=== PATIENT | female | born 2000 | race African-American/Black ===

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

== ENCOUNTER 2018-09-20 21:32 | Emergency (ER) | payer MEDICAID, OTHER ==
[2018-09-20 21:46] VITALS: BP 127/63
[2018-09-20] MEDS ORDERED: LIDOCAINE 2% URO-JET 5 ML KIT MM ONE (21:51)
--- NOTE | 2018-09-20 22:02 | ER Document Report ---
ED Medical Screen (RME) - General Chief Complaint: Lower Abdominal Pain Stated Complaint: ABDOMINAL AND BACK PAIN Time Seen by Provider: 09/20/18 22:00 Notes: Patient is a 18-year-old female presents the emergency department complaining of left lower pelvic pain for the last 3 days. Patient denies any nausea, vomiting, diarrhea, fever. Patient is admitting to some thick vaginal discharge and dysuria. Past medical history: None Medications: None Allergies: None Physical exam: Generalized left lower pelvic pain more so upon palpation, no right or suprapubic pelvic pain. No CVA tenderness bilaterally I have greeted and performed a rapid initial assessment of this patient. A comprehensive ED assessment and evaluation of the patient, analysis of test results and completion of the medical decision making process will be conducted by additional ED providers. TRAVEL OUTSIDE OF THE [place] IN LAST 30 DAYS: No - Related Data Allergies/Adverse Reactions: No Known Allergies Allergy (Verified 02/20/17 13:16) Past Medical History Renal/ Medical History: Denies: Hx Peritoneal Dialysis - Immunizations Hx Diphtheria, Pertussis, Tetanus Vaccination: Yes - 02/20/2017 Physical Exam - Vital signs Vitals: Temp Pulse Resp BP Pulse Ox 98.6 F 90 16 127/63 H 99 09/20/18 21:42 09/20/18 21:42 09/20/18 21:42 09/20/18 21:42 09/20/18 21:42 Course - Vital Signs Vital signs: Temp Pulse Resp BP Pulse Ox 98.6 F 90 16 127/63 H 99 09/20/18 21:42 09/20/18 21:42 09/20/18 21:42 09/20/18 21:42 09/20/18 21:42
[2018-09-20 23:26] LABS: ABSOLUTE EOSINOPHILS # (AUTO) 0.2 10^3/uL (0.0-0.6); ABSOLUTE LYMPHOCYTES (AUTO) 3.3 10^3/uL (0.5-4.7); ABSOLUTE MONOCYTES (AUTO) 0.5 10^3/uL (0.1-1.4); ABSOLUTE NEUT (AUTO) 3.3 10^3/uL (1.7-8.2); BASOPHILS % (AUTO) 0.5 % (0-2); EOSINOPHILS % (AUTO) 2.2 % (0-6); HEMATOCRIT 38.3 % (36.0-47.0); HEMOGLOBIN 12.8 g/dL (12.0-15.5); LYMPHOCYTES % (AUTO) 45.6 % (13-45); MEAN CORPUSCULAR HEMOGLOBIN 24.7 pg (27.0-33.4); MEAN CORPUSCULAR HGB CONC 33.5 g/dL (32.0-36.0); MEAN CORPUSCULAR VOLUME 74 fl (80-97); MONOCYTES % (AUTO) 6.9 % (3-13); PLATELET COUNT 320 10^3/uL (150-450); RED CELL DISTRIBUTION WIDTH 14.1 % (11.5-14.0); SEGMENTED NEUTROPHILS % (AUTO) 44.8 % (42-78); TOTAL CELLS COUNTED % (AUTO) 100 %; WHITE BLOOD COUNT 7.3 10^3/uL (4.0-10.5)
[2018-09-20 23:43] LABS: ALANINE AMINOTRANSFERASE 14 U/L (9-52); ALBUMIN 4.5 g/dL (3.5-5.0); ALKALINE PHOSPHATASE 101 U/L (38-126); ANION GAP 11 (5-19); ASPARTATE AMINO TRANSFERASE 15 U/L (14-36); BILIRUBIN,DIRECT 0.1 mg/dL (0.0-0.4); BILIRUBIN,TOTAL 0.2 mg/dL (0.2-1.3); BLOOD UREA NITROGEN 9 mg/dL (7-20); CALCIUM 9.5 mg/dL (8.4-10.2); CARBON DIOXIDE 24 mmol/L (22-30); CHLORIDE 105 mmol/L (98-107); GLUCOSE 117 mg/dL (75-110); POTASSIUM 4.3 mmol/L (3.6-5.0); SODIUM 139.9 mmol/L (137-145); TOTAL PROTEIN 7.4 g/dL (6.3-8.2)
[2018-09-21] MEDS ORDERED: IBUPROFEN 600 MG TABLET PO ONE (00:58)
--- NOTE | 2018-09-21 00:58 | ER Document Report ---
ED General - General Chief Complaint: Lower Abdominal Pain Stated Complaint: ABDOMINAL AND BACK PAIN Time Seen by Provider: 09/20/18 22:00 TRAVEL OUTSIDE OF THE [place] IN LAST 30 DAYS: No - HPI Notes: Patient is a 18-year-old female that presents to the emergency department for chief complaint of left lower quadrant pain. Patient reports left lower quadrant and pelvic pain for the last 3-4 days. She states it started intermittent and has now become constant. The pain radiates up into her left flank. She denies any fever, chills, nausea, vomiting, diarrhea and dysuria. She states she is having normal bowel movements. Patient denies concern for and states she has the Nexplanon implant in. She denies any vaginal discharge that is changed from her baseline. She denies any concern for STD. She denies aggravating or relieving factors to her pain. Past Medical History: Migraines Past Surgical History: Negative Social History: Denies drugs alcohol and tobacco Family History: Reviewed and noncontributory for presenting illness Allergies: Reviewed, see documented allergy list. REVIEW OF SYSTEMS: CONSTITUTIONAL : No fever No chills No diaphoresis No recent illness EENT: No vision changes No congestion No sore throat CARDIOVASCULAR: No chest pain No palpitations RESPIRATORY: No shortness of breath No cough No difficulty breathing GASTROINTESTINAL: abdominal pain No nausea No vomiting No diarrhea GENITOURINARY: No dysuria No hematuria No difficulty urinating MUSCULOSKELETAL: No back pain No leg pain No arm pain SKIN: No rashes No lesions LYMPHATIC: No swollen, enlarged glands. NEUROLOGICAL: No lightheadedness No headache No weakness No paresthesias PSYCHIATRIC: No anxiety No depression PHYSICAL EXAMINATION: Vital signs reviewed, nursing noted reviewed. GENERAL: Well-appearing, well-nourished and in no acute distress. HEAD: Atraumatic, normocephalic. EYES: Eyes appear normal, extraocular movements intact, sclera anicteric, conjunctiva are normal. ENT: nares patent, oropharynx clear without exudates. Moist mucous membranes. NECK: Normal range of motion, supple without lymphadenopathy LUNGS: Breath sounds clear to auscultation bilaterally and equal. No wheezes rales or rhonchi. HEART: Regular rate and rhythm without murmurs ABDOMEN: Soft, mild left lower quadrant tenderness, normoactive bowel sounds. No rebound, guarding, or rigidity. No masses appreciated. EXTREMITIES: Nontender, good range of motion, no pitting or edema. NEUROLOGICAL: No focal neurological deficits. Moves all extremities spontaneously Motor and sensory grossly intact on exam. PSYCH: Normal mood, normal affect. SKIN: Warm, Dry, normal turgor, no rashes or lesions noted on exposed skin - Related Data Allergies/Adverse Reactions: No Known Allergies Allergy (Verified 02/20/17 13:16) Past Medical History - Social History Smoking Status: Never Smoker Family History: Malignancy. denies: None, Reviewed & Not Pertinent, Arthritis, CAD, COPD, CVA, DM, Hyperlipidemia, Hypertension, Thyroid Disfunction, Other Renal/ Medical History: Denies: Hx Peritoneal Dialysis - Immunizations Hx Diphtheria, Pertussis, Tetanus Vaccination: Yes - 02/20/2017 Physical Exam - Vital signs Vitals: Temp Pulse Resp BP Pulse Ox 98.6 F 90 16 127/63 H 99 09/20/18 21:42 09/20/18 21:42 09/20/18 21:42 09/20/18 21:42 09/20/18 21:42 Course - Re-evaluation Re-evalutation: 09/21/18 02:36 Vitals reviewed. Nursing notes reviewed. Patient's abdominal exam is benign. She has some mild left-sided tenderness with no peritoneal signs. KUB is suggestive of acute constipation. Patient's lab work is unremarkable. She denies any change in vaginal discharge to me and denies any concern for STD, pelvic exam not currently indicated. Urinalysis is negative for infection. Patient will be discharged home on MiraLAX. She will follow with primary care. Laboratory 09/20/18 09/20/18 09/20/18 22:55 22:55 22:55 WBC 7.3 RBC 5.20 Hgb 12.8 Hct 38.3 MCV 74 L MCH 24.7 L MCHC 33.5 RDW 14.1 H Plt Count 320 Seg Neutrophils % 44.8 Lymphocytes % 45.6 H Monocytes % 6.9 Eosinophils % 2.2 Basophils % 0.5 Absolute Neutrophils 3.3 Absolute Lymphocytes 3.3 Absolute Monocytes 0.5 Absolute Eosinophils 0.2 Absolute Basophils 0.0 Sodium 139.9 Potassium 4.3 Chloride 105 Carbon Dioxide 24 Anion Gap 11 BUN 9 Creatinine 0.69 Est GFR ( Amer) > 60 Est GFR (Non-Af Amer) > 60 Glucose 117 H Calcium 9.5 Total Bilirubin 0.2 Direct Bilirubin 0.1 Neonat Total Bilirubin Not Reportable Neonat Direct Bilirubin Not Reportable Neonat Indirect Bili Not Reportable AST 15 ALT 14 Alkaline Phosphatase 101 Total Protein 7.4 Albumin 4.5 Urine Color YELLOW Urine Appearance CLEAR Urine pH 7.0 Ur Specific [place] 1.016 Urine Protein NEGATIVE Urine Glucose (UA) NEGATIVE Urine Ketones NEGATIVE Urine Blood SMALL H Urine Nitrite NEGATIVE Urine Bilirubin NEGATIVE Urine Urobilinogen 2.0 H Ur Leukocyte Esterase NEGATIVE Urine WBC (Auto) 0 Urine RBC (Auto) 1 Squamous Epi Cells Auto 4 Urine Mucus (Auto) RARE Urine Ascorbic Acid NEGATIVE Urine HCG, Qual NEGATIVE KUB X-Ray 09/21/18 00:57 IMPRESSION: Suspect constipation. - Vital Signs Vital signs: Temp Pulse Resp BP Pulse Ox 98.6 F 90 16 127/63 H 99 09/20/18 21:42 09/20/18 21:42 09/20/18 21:42 09/20/18 21:42 09/20/18 21:42 - Laboratory Result Diagrams: 09/20/18 22:55 09/20/18 22:55 Laboratory results interpreted by me: 09/20/18 09/20/18 09/20/18 22:55 22:55 22:55 MCV 74 L MCH 24.7 L RDW 14.1 H Lymphocytes % 45.6 H Glucose 117 H Urine Blood SMALL H Urine Urobilinogen 2.0 H Discharge - Discharge Clinical Impression: Constipation Qualifiers: Constipation type: other constipation type Qualified Code(s): K59.09 - Other constipation Condition: Stable Disposition: HOME, SELF-CARE Instructions: Constipation ([facility]), Family Physicians / Practices Additional Instructions: Please return to the emergency department if you have any worsening, or concern of your symptoms. Please return to the emergency department if you develop chest pain, difficulty breathing, severe abdominal pain, or ongoing vomiting. Please follow-up with your primary care physician in 2-3 days and any other recommended physicians. If prescribed, take all medications as directed. If you have any questions or concerns do not hesitate to return the emergency department for evaluation. Take the MiraLAX twice a day until he started having routine soft bowel movements daily. Then you can begin taking it once a day or once every other day as needed Prescriptions: Polyethylene Glycol 3350 [Miralax Powder 17 gm/Packet] 1 packet PO BID #1 pkg Referrals: [facility] [Provider Group] - Follow up as needed
[2018-09-21 01:25] LABS: APPEARANCE,URINE CLEAR; BILIRUBIN,URINE NEGATIVE (NEGATIVE); COLOR,URINE YELLOW; GLUCOSE, URINE NEGATIVE (NEGATIVE); KETONES,URINE NEGATIVE (NEGATIVE); LEUKOCYTE ESTERASE,URINE NEGATIVE (NEGATIVE); NITRITE,URINE NEGATIVE (NEGATIVE); PROTEIN,URINE NEGATIVE (NEGATIVE); URINE SPECIFIC GRAVITY 1.016
--- NOTE | 2018-09-21 02:29 | RADIOLOGY REPORT (SQ) ---
CLINICAL HISTORY: constipation COMPARISON: None. TECHNIQUE: XR ABDOMEN 1 VIEW (KUB) 09/21/2018 12:57 AM X RAY TECHNICIAN FINDINGS: There is moderate amount of stool throughout colon. There are no abnormal radiopaque foreign bodies or abnormal calcifications. Osseous structures are grossly unremarkable. IMPRESSION: Suspect constipation.
[2018-09-21 02:55] LABS: CHLAM PCR NOT DETECTED (NOT DETECT); GON PCR NOT DETECTED (NOT DETECT)
== END 2018-09-21 02:58 | disposition home or self-care (01) ==
LOC: ER 21:32
DX: K59.00 Constipation, unspecified (principal); R10.32 Left lower quadrant pain; R10.2 Pelvic and perineal pain; Z97.5 Presence of (intrauterine) contraceptive device
CPT/HCPCS: 36415; 74018; 80053; 81001; 81025; 85025; 87491; 87591; 99284

== ENCOUNTER 2020-04-26 16:17 | Outpatient (CLI) | payer MEDICAID ==
--- NOTE | 2020-04-26 17:33 | Non Stress Test Report ---
Non Stress Test Datetime Report Generated by CPN: 04/26/2020 17:33 DEMOGRAPHIC EGA NST: 38.3 INDICATION Indication for Study (NST) Other: Provider Order VITAL SIGNS Temperature - NST: 98.4 Pulse - NST: 100 RESP - NST: 13 NBPSYS NST: 98 NBPDIA NST: 51 MONITORING Monitor Explained: Monitor Explained; Test Explained; Patient Verbalized Understanding Time on Monitor: 04/26/2020 16:30 Time off Monitor: 04/26/2020 17:20 NST Duration: 50 NST INTERVENTIONS NST Interventions: PO Hydration Physician Notified NST: Dr. Armstrong BABY A: [id number] Movement : Present Movement : Present Contraction Frequency : Irregular FHR Baseline : 135 Accelerations : 15X15 Decelerations : None Variability : Moderate 6-25bpm NST Review: Meets Criteria for Reactive NST NST Review and Verified By : Mary Ellen Hensley RN NST Results: Reactive NST REPORT Report Trigger: Send Report
== END 2020-04-26 17:24 | disposition home or self-care (01) ==
LOC: LC 16:17
PROVIDERS: ATTEND Obstetrics & Gynecology Gynecology
DX: Z34.83 Encounter for supervision of other normal pregnancy, third trimester (principal); Z3A.38 38 weeks gestation of pregnancy
CPT/HCPCS: 59025

== ENCOUNTER 2020-05-10 04:50 | Inpatient (IN) | payer MEDICAID ==
[2020-05-04 10:07] LABS: HEMATOCRIT 32.1 % (36.0-47.0); HEMOGLOBIN 10.7 g/dL (12.0-15.5); MEAN CORPUSCULAR HGB CONC 33.2 g/dL (32.0-36.0); MEAN CORPUSCULAR VOLUME 72 fl (80-97); PLATELET COUNT 209 10^3/uL (150-450); RED BLOOD COUNT 4.45 10^6/uL (3.72-5.28)
[2020-05-04 10:30] LABS: APPEARANCE,URINE CLOUDY; BILIRUBIN,URINE NEGATIVE (NEGATIVE); COLOR,URINE YELLOW; GLUCOSE, URINE 50 mg/dL (NEGATIVE); KETONES,URINE NEGATIVE (NEGATIVE); LEUKOCYTE ESTERASE,URINE LARGE (NEGATIVE); NITRITE,URINE NEGATIVE (NEGATIVE); PROTEIN,URINE NEGATIVE (NEGATIVE); URINE SPECIFIC GRAVITY 1.012; UROBILINOGEN,URINE NEGATIVE mg/dL (<2.0)
[2020-05-04 10:40] LABS: URINE AMPHETAMINES SCREEN NEGATIVE; URINE BARBITURATES SCREEN NEGATIVE; URINE BENZODIAZEPINES SCREEN NEGATIVE; URINE COCAINE SCREEN NEGATIVE; URINE MARIJUANA (THC) SCREEN NEGATIVE; URINE METHADONE SCREEN NEGATIVE; URINE PHENCYCLIDINE SCREEN NEGATIVE
[2020-05-04 11:08] LABS: ABSOLUTE LYMPHOCYTES# (MANUAL) 2.6 10^3/uL (0.5-4.7); ABSOLUTE MONOCYTES # (MANUAL) 0.1 10^3/uL (0.1-1.4); ANISOCYTOSIS 1+; BASOPHILS % (MANUAL) 0 % (0-2); EOSINOPHILS % (MANUAL) 2 % (0-6); LYMPHOCYTES % (MANUAL) 33 % (13-45); MONOCYTES % (MANUAL) 1 % (3-13); PLATELET COMMENT ADEQUATE; POIKILOCYTOSIS SLIGHT; SEGMENTED NEUTROPHILS % (MAN) 64 % (42-78); TEAR DROP CELLS 1+; TOTAL CELLS COUNTED 100
[2020-05-10] MEDS ORDERED: RINGERS SOLUTION,LACTATED 1,000 ML IV PRN ×3 (05:57→12:21)
[2020-05-10] MEDS ORDERED: RINGERS SOLUTION,LACTATED 1,000 ML IV ONE (06:00)
[2020-05-10] MEDS ORDERED: PHENYLEPHRINE HCL INJ/PF 10 MG/1 ML SDV ONE (07:24)
[2020-05-10] MEDS ORDERED: ACETAMINOPHEN 1,000 MG/100 ML RTUPB IV ONE (07:24)
[2020-05-10] MEDS ORDERED: FENTANYL CITRATE INJ/PF 100 MCG/2 ML AMPUL ONE (07:24)
[2020-05-10] MEDS ORDERED: ONDANSETRON HCL INJ/PF 4 MG/2 ML SDV ONE (07:24)
[2020-05-10] MEDS ORDERED: OXYTOCIN 10 UNIT/ML VIAL ONE (07:24)
[2020-05-10] MEDS ORDERED: KETOROLAC TROMETHAMINE INJ/PF 30 MG/1 ML SDV ONE (07:24)
[2020-05-10] MEDS ORDERED: GLYCOPYRROLATE INJ 0.4 MG/2 ML VIAL ONE (07:24)
[2020-05-10] MEDS ORDERED: OXYTOCIN/0.9 % SODIUM CHLORIDE 30 UNIT/500 ML RTUINJ ONE (07:24)
[2020-05-10] MEDS ORDERED: MIDAZOLAM 2 MG/2 ML INJ ONE (07:24)
[2020-05-10] MEDS ORDERED: CEFAZOLIN 2 GM/D5W RTU 2 GM/50 ML RTUPB IV ONE (07:30)
[2020-05-10] MEDS ORDERED: MORPHINE SULFATE 10 MG/ML INJ IV PRN (08:20)
[2020-05-10] MEDS ORDERED: PROMETHAZINE HCL INJ 25 MG/1 ML VIAL IV PRN ×4 (08:20→12:21)
[2020-05-10] MEDS ORDERED: DIPHENHYDRAMINE HCL 50 MG/ML VIAL IV PRN (08:20)
[2020-05-10] MEDS ORDERED: FENTANYL CITRATE INJ/PF 100 MCG/2 ML AMPUL IV PRN ×3 (08:20)
[2020-05-10] MEDS ORDERED: MEPERIDINE HCL/PF INJ 25 MG/1 ML DISP.SYRIN IV PRN (08:20)
[2020-05-10] MEDS ORDERED: OXYCODONE-ACETAMINOPHEN 5-325 MG TABLET PO PRN ×3 (08:20→08:33)
[2020-05-10] MEDS ORDERED: ACETAMINOPHEN 1,000 MG/100 ML RTUPB IV PRN (08:33)
[2020-05-10] MEDS ORDERED: ACETAMINOPHEN 325 MG TABLET PO PRN ×2 (08:33→12:21)
[2020-05-10] MEDS ORDERED: MORPHINE SULFATE 10 MG/ML INJ IM PRN ×2 (08:33→12:21)
[2020-05-10] MEDS ORDERED: SIMETHICONE 80 MG TAB.CHEW PO PRN (08:33)
[2020-05-10] MEDS ORDERED: MEASLES,MUMPS&RUBELLA VACC/PF 0.5 ML VIAL SUBCUT PRN ×2 (08:33→12:21)
[2020-05-10] MEDS ORDERED: OXYTOCIN/0.9 % SODIUM CHLORIDE 30 UNIT/500 ML RTUINJ IV PRN ×2 (08:33→12:21)
[2020-05-10] MEDS ORDERED: DIPH/PERTUSS(ACELL)/TETANUS VAC/PF 0.5 ML SYR (>=10YO) IM PRN ×2 (08:33→12:21)
--- NOTE | 2020-05-10 08:36 | PDOC DELIVERY SUMMARY ---
Delivery Summary - Maternal Hx : II Hx # Pregnancies: 1 SUMA: 05/07/20 Gestational Age: 40+3 Ruptured Membranes: AROM Fluids: Clear - Delivery Labor: Not In Labor Presentation: Vertex Heart Rate Monitoring: Externally Uterine Contraction Monitoring: External Support Person Present: Yes : Scheduled Placenta: Within Normal Limits Nuchal Cord: No - Medications Type of Anesthesia:: Spinal
--- NOTE | 2020-05-10 08:40 | Operative Report ---
Operative Report DATE OF SURGERY: 05/10/20 PREOPERATIVE DIAGNOSIS: BP term macrosomia POSTOPERATIVE DIAGNOSIS: Same OPERATION: Very low transverse section delivery of viable female infant SURGEON: SUNDAY DANIELSON ANESTHESIA: Spinal TISSUE REMOVED OR ALTERED: Placenta ESTIMATED BLOOD LOSS: Approximately the 900 cc PROCEDURE: The patient was taken to the operating room where spinal anesthesia was obtained and found to be adequate. She was then prepped and draped in the normal sterile fashion and placed in the dorsal supine position with a leftward tilt. A Pfannenstiel skin incision was then made and carried through to the underlying layers of the fascia with the scalpel. The fascia was incised in the midline and the incision extended laterally with the West scissors. The superior aspect of the fascial incision was then grasped with Jairo clamps elevated and the underlying rectus muscles dissected off bluntly. Attention was then turned to the inferior aspect of the fascial incision which in a similar fashion was grasped, tented up with Charley clamps, and the rectus muscles dissected off bluntly. The rectus muscles were then in the midline and the peritoneum at the amount identified and entered bluntly. The peritoneal incision was then extended superiorly and inferiorly with good visualization of the bladder. [The bladder blade was inserted and the vesicouterine peritoneum identified grasped with Finnish pickups and entered sharply with the Metzenbaum scissors. His incision was then extended laterally with the Metzenbaum scissors and a bladder flap created digitally. The bladder blade was then reinserted and the lower uterine segment incised in a transverse fashion with the scalpel. The uterine incision was then extended bluntly. The bladder blade was removed and the infant's head was delivered from cephalic presentation atraumatically. The nose and mouth were suctioned and the cord doubly clamped and cut. And the infant was handed off to waiting pediatricians. The placenta was then delivered manully and the uterus exteriorized and cleared of all clots and debris. The uterine incision was then repaired with 1-0 Vicryl in a running locked fashion. A second layer of the same suture was used to obtain hemostasis via imbrication of the initial layer. The uterus was returned to the patient's abdomen. The gutters were cleared of all clots and debris. All operative sites were noted to be hemostatic. The fascia was reapproximated with 0 Vicryl in a running fashion from each lateral edge to the midline. The patient tolerated the procedure well. Sponge lap needle and instrument counts are correct -2. 2 g of Ancef were given prior to skin incision. The patient was taken to the recovery area awake and in stable condition.
[2020-05-10] MEDS ORDERED: BUPIVACAINE HCL 0.25 % INJ/PF (2.5 MG/1 ML) 30 ML VIAL ONE (08:41)
[2020-05-10] MEDS ORDERED: MEPERIDINE HCL/PF INJ 25 MG/1 ML DISP.SYRIN ONE (09:43)
[2020-05-10] MEDS ORDERED: PRENATAL VITAMIN W DHA CAPSULE PO SCH (10:00)
[2020-05-10] MEDS ORDERED: DOCUSATE SODIUM 100 MG CAPSULE PO SCH (10:00)
[2020-05-10] MEDS ORDERED: ACETAMINOPHEN 100 ML IV PRN (12:21)
[2020-05-10] MEDS: OXYCODONE-ACETAMINOPHEN 5-325 MG TABLET PO PRN ×2 (12:41→20:43)
[2020-05-10] MEDS ORDERED: KETOROLAC TROMETHAMINE INJ/PF 30 MG/1 ML SDV IV SCH (14:00)
[2020-05-10] MEDS: KETOROLAC TROMETHAMINE INJ/PF 30 MG/1 ML SDV IV SCH ×2 (15:24→21:45)
[2020-05-10] MEDS: DOCUSATE SODIUM 100 MG CAPSULE PO SCH (17:33)
[2020-05-10] MEDS: SIMETHICONE 80 MG TAB.CHEW PO PRN (21:46)
[2020-05-11] MEDS: IBUPROFEN 800 MG TABLET PO SCH ×3 (05:29→17:51)
[2020-05-11 07:28] LABS: HEMATOCRIT 29.4 % (36.0-47.0); HEMOGLOBIN 9.9 g/dL (12.0-15.5); MEAN CORPUSCULAR HEMOGLOBIN 24.3 pg (27.0-33.4); MEAN CORPUSCULAR HGB CONC 33.8 g/dL (32.0-36.0); MEAN CORPUSCULAR VOLUME 72 fl (80-97); PLATELET COUNT 173 10^3/uL (150-450); RED BLOOD COUNT 4.09 10^6/uL (3.72-5.28); RED CELL DISTRIBUTION WIDTH 16.4 % (11.5-14.0)
[2020-05-11] MEDS: DOCUSATE SODIUM 100 MG CAPSULE PO SCH ×2 (10:00→17:53)
[2020-05-11] MEDS: PRENATAL VITAMIN W DHA CAPSULE PO SCH (10:01)
--- NOTE | 2020-05-11 10:41 | PDOC PROGRESS REPORT ---
Subjective-OB Progress Note for:: 05/11/20 - POD #1, doing well, no complaits, UOB, voiding, s/p Primary c/s for macrosomia Physical Exam (OB) Vital Signs: Temp Pulse Resp BP Pulse Ox 97.8 F 85 16 106/60 100 05/11/20 07:42 05/11/20 07:42 05/11/20 07:42 05/11/20 07:42 05/11/20 07:42 Intake & Output 05/10/20 05/11/20 05/12/20 06:59 06:59 06:59 Intake Total 600 Output Total 850 Balance -850 600 Weight 87.498 kg - General General Appearance: Appears well, Alert - PIH/Pre-Eclampsia Headache: Absent - Incision: Dressing - Lochia Lochia Amount: Small 10-25 ml Lochia Color: Rubra/Red - Abdomen Description: Tender, Soft Hernia Present: No Fundal Description: Firm, Midline Fundal Height: u/u - u/2 - Respiratory Respiratory Status: No respiratory distress Breath sounds: Clear - Cardiovascular Rhythm: Regular Heart Sounds: Normal auscultation - Abdominal Inspection: Gravid female Distension: No distension Tenderness: Nontender Organomegaly: No organomegaly Abdominal Notes: +bowel sounds, - Genitourinary Genitourinary Note: voiding - Extremities Upper extremity: Normal inspection Lower extremities: Normal inspection - Neurological Cognition: Normal Orientation: AAOx4 - Psychological Associated symptoms: Normal affect, Normal mood - Skin Skin Temperature: Warm Skin Moisture: Dry Objective-Diagnostic Laboratory: 05/11/20 06:58 05/11/20 06:58 WBC 12.0 H RBC 4.09 Hgb 9.9 L Hct 29.4 L MCV 72 L MCH 24.3 L MCHC 33.8 RDW 16.4 H Plt Count 173 Assessment and Plan(PN) - Assessment and Plan (1) S/P primary low transverse Is this a current diagnosis for this admission?: Yes (2) Normal course Is this a current diagnosis for this admission?: Yes Plan:: routine PP orders, ambulation encouraged - Time Spent with Patient Time with patient: Less than 15 minutes Medications reviewed and adjusted accordingly: Yes - Disposition Anticipated Discharge Disposition: Home, Self Care Anticipated Discharge Timeframe: within 24 hours
[2020-05-11] MEDS: SIMETHICONE 80 MG TAB.CHEW PO PRN (11:00)
[2020-05-11] MEDS ORDERED: IBUPROFEN 800 MG TABLET PO SCH ×2 (12:00→18:00)
[2020-05-11] MEDS: OXYCODONE-ACETAMINOPHEN 5-325 MG TABLET PO PRN (15:10)
[2020-05-12] MEDS: OXYCODONE-ACETAMINOPHEN 5-325 MG TABLET PO PRN ×2 (02:11→10:54)
[2020-05-12] MEDS: IBUPROFEN 800 MG TABLET PO SCH ×3 (05:59→11:49)
[2020-05-12 07:59] VITALS: BP 125/70
--- NOTE | 2020-05-12 10:21 | PDOC DISCHARGE SUMMARY ---
Impression - Admit/DC Date/PCP Admission Date/Primary Care Provider: 05/10/20 04:50 SARAH LION MD Discharge Date: 05/12/20 - POD #2, desires to go home today - Discharge Diagnosis (1) S/P primary low transverse Is this a current diagnosis for this admission?: Yes (2) Normal course Is this a current diagnosis for this admission?: Yes - Additional Information Resuscitation Status: Full Code Discharge Diet: As Tolerated, Regular Discharge Activity: Activity As Tolerated, No Driving, No Lifting Over 10 Pounds, Pelvic Rest Referrals: SARAH LION MD [Primary Care Provider] - Prescriptions: Ibuprofen [Motrin 800 mg Tablet] 800 mg PO Q6 #60 tablet Oxycodone HCl/Acetaminophen [Percocet 5-325 mg Tablet] 2 tab PO Q4HP PRN 30 Days #30 tablet PRN Reason: Pain Scale Of 4 Home Medications: Docusate Sodium [Colace 100 mg Capsule] 100 mg PO DAILY 05/10/20 Ferrous Sulfate 325 mg PO BID 05/10/20 Pnv No.95/Ferrous Fum/Folic AC [ Caplet] 1 tab PO DAILY 05/10/20 Ibuprofen [Motrin 800 mg Tablet] 800 mg PO Q6 #60 tablet 05/12/20 Oxycodone HCl/Acetaminophen [Percocet 5-325 mg Tablet] 2 tab PO Q4HP PRN 30 Days #30 tablet 05/12/20 HPI Reason(s) for Admission: Ceasarean Section-Primary Procedures: Ultrasound Intrapartum Procedure(s): : Low Cervical, Transverse Hospital Course Hospital Course: routine Results Laboratory Results: WBC 12.0 10^3/uL (4.0-10.5) H 05/11/20 06:58 RBC 4.09 10^6/uL (3.72-5.28) 05/11/20 06:58 Hgb 9.9 g/dL (12.0-15.5) L 05/11/20 06:58 Hct 29.4 % (36.0-47.0) L 05/11/20 06:58 MCV 72 fl (80-97) L 05/11/20 06:58 MCH 24.3 pg (27.0-33.4) L 05/11/20 06:58 MCHC 33.8 g/dL (32.0-36.0) 05/11/20 06:58 RDW 16.4 % (11.5-14.0) H 05/11/20 06:58 Plt Count 173 10^3/uL (150-450) 05/11/20 06:58 Lymph % (Auto) Not Reportable 05/04/20 09:27 [place] % (Auto) Not Reportable 05/04/20 09:27 Eos % (Auto) Not Reportable 05/04/20 09:27 Baso % (Auto) Not Reportable 05/04/20 09:27 Absolute Neuts (auto) Not Reportable 05/04/20 09:27 Absolute Lymphs (auto) Not Reportable 05/04/20 09:27 Absolute Monos (auto) Not Reportable 05/04/20 09:27 Absolute Eos (auto) Not Reportable 05/04/20 09:27 Absolute Basos (auto) Not Reportable 05/04/20 09:27 Total Counted 100 05/04/20 09:27 Seg Neutrophils % Not Reportable 05/04/20 09:27 Seg Neuts % (Manual) 64 % (42-78) 05/04/20 09:27 Lymphocytes % (Manual) 33 % (13-45) 05/04/20 09:27 Monocytes % (Manual) 1 % (3-13) L 05/04/20 09:27 Eosinophils % (Manual) 2 % (0-6) 05/04/20 09:27 Basophils % (Manual) 0 % (0-2) 05/04/20 09:27 Abs Neuts (Manual) 5.1 10^3/uL (1.7-8.2) 05/04/20 09:27 Abs Lymphs (Manual) 2.6 10^3/uL (0.5-4.7) 05/04/20 09:27 Abs Monocytes (Manual) 0.1 10^3/uL (0.1-1.4) 05/04/20 09:27 Absolute Eos (Manual) 0.2 10^3/uL (0.0-0.6) 05/04/20 09:27 Abs Basophils (Manual) 0.0 10^3/uL (0.0-0.2) 05/04/20 09:27 Platelet Comment ADEQUATE 05/04/20 09:27 Poikilocytosis SLIGHT 05/04/20 09:27 Anisocytosis 1+ 05/04/20 09:27 Microcytosis 1+ 05/04/20 09:27 Tear Drop Cells 1+ 05/04/20 09:27 Urine Color YELLOW 05/04/20 09:35 Urine Appearance CLOUDY 05/04/20 09:35 Urine pH 6.0 (5.0-9.0) 05/04/20 09:35 Ur Specific [place] 1.012 05/04/20 09:35 Urine Protein NEGATIVE mg/dL (NEGATIVE) 05/04/20 09:35 Urine Glucose (UA) 50 mg/dL (NEGATIVE) H 05/04/20 09:35 Urine Ketones NEGATIVE mg/dL (NEGATIVE) 05/04/20 09:35 Urine Blood NEGATIVE (NEGATIVE) 05/04/20 09:35 Urine Nitrite NEGATIVE (NEGATIVE) 05/04/20 09:35 Urine Bilirubin NEGATIVE (NEGATIVE) 05/04/20 09:35 Urine Urobilinogen NEGATIVE mg/dL (<2.0) 05/04/20 09:35 Ur Leukocyte Esterase LARGE (NEGATIVE) H 05/04/20 09:35 Urine WBC (Auto) 10 /HPF 05/04/20 09:35 Urine RBC (Auto) 3 /HPF 05/04/20 09:35 Squamous Epi Cells Auto 19 /HPF 05/04/20 09:35 Urine Mucus (Auto) RARE /LPF 05/04/20 09:35 Urine Ascorbic Acid NEGATIVE (NEGATIVE) 05/04/20 09:35 Urine Opiates Screen NEGATIVE 05/04/20 09:35 Urine Methadone Screen NEGATIVE 05/04/20 09:35 Ur Barbiturates Screen NEGATIVE 05/04/20 09:35 Ur Phencyclidine Scrn NEGATIVE 05/04/20 09:35 Ur Amphetamines Screen NEGATIVE 05/04/20 09:35 U Benzodiazepines Scrn NEGATIVE 05/04/20 09:35 Urine Cocaine Screen NEGATIVE 05/04/20 09:35 U Marijuana (THC) Screen NEGATIVE 05/04/20 09:35 COVID-19 Source NASOPHARYNGEAL 05/04/20 09:20 COVID-19 (RADHA) NOT DETECTED 05/04/20 09:20 Blood Type O POSITIVE 05/09/20 08:34 Antibody Screen NEGATIVE 05/09/20 08:34 Plan Plan of Treatment: d/c home, f/up with [facility] in one week for incision check Time Spent: Less than 30 Minutes
[2020-05-12] MEDS: DOCUSATE SODIUM 100 MG CAPSULE PO SCH (10:54)
[2020-05-12] MEDS: PRENATAL VITAMIN W DHA CAPSULE PO SCH (10:54)
== END 2020-05-12 13:15 | disposition home or self-care (01) | DRG 788 ==
LOC: 2S 04:50
PROVIDERS: ADMIT Obstetrics & Gynecology Gynecology; ATTEND Obstetrics & Gynecology Gynecology
PROC: 10D00Z1 Extraction of Products of Conception, Low, Open Approach (ICD-10-PCS; principal; 2020-05-10)
DX: O24.420 Gestational diabetes mellitus in childbirth, diet controlled (principal); O36.63X0 Maternal care for excessive fetal growth, third trimester, not applicable or unspecified; Z37.0 Single live birth; Z03.818 Encounter for observation for suspected exposure to other biological agents ruled out; Z3A.40 40 weeks gestation of pregnancy
CPT/HCPCS: 1961; 36415; 59025; 64486; 76942; 80307; 81001; 85025; 85027; 86850; 86900; 86901; 87635; 94760; 94799; C9803; J0131; J1885; J2175; J2250; J2370; J2405; J2590; J3010; J3490; J7120